=== PATIENT | male | born 1985 | race Two or more races ===

== ENCOUNTER → 2016-12-16 | Outpatient (CLI) | payer OTHER ==
--- NOTE | 2016-12-16 11:42 | REP ---
REASON: Patient fell yesterday. FINDINGS: No acute fracture or destructive osseous lesion. The mortise is intact. Signed by Jai Malcolm DO 12/16/2016 10:43 A
== END ==
LOC: M LRY 09:14
PROVIDERS: ATTEND Nurse Practitioner Family
DX: S99.912A Unspecified injury of left ankle, initial encounter (principal); X58.XXXA Exposure to other specified factors, initial encounter; Y93.9 Activity, unspecified; Y92.9 Unspecified place or not applicable; Y99.8 Other external cause status